=== PATIENT | male | born 1980 | race Caucasian/White ===

== ENCOUNTER 2021-09-05 09:51 | Emergency (ER) | payer BC ==
--- NOTE | 2021-09-05 10:00 | EDM.PDOC ---
ED HPI GENERAL MEDICAL PROBLEM - General Chief Complaint: Laceration Stated Complaint: FINGER LACERATION Time Seen by Provider: 09/05/21 09:51 Source of Information: Reports: Patient, Family History Limitations: Reports: No Limitations - History of Present Illness INITIAL COMMENTS - FREE TEXT/NARRATIVE: Charanjit, 41-year-old male, presents with laceration to the dorsal aspect of the right third PIP joint. This is 1.5 cm in total length and gapes with flexion of the digit. Bleeding is controlled with direct pressure. 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 Denies pain other than to the laceration site. Tetanus status is beyond 10 years and will be updated today. Denies any other concerns or complaints. Onset: Today, Sudden Duration: Minutes: Location: Reports: Upper Extremity, Right Quality: Reports: Dull, Pressure Severity: Moderate Improves with: Reports: Immobilization Worsens with: Reports: Movement Context: Reports: Activity Right Finger-Middle Pain Score (Numeric/FACES): 4 - Related Data Allergies Allergy/AdvReac Type Severity Reaction Status Date / Time No Known Allergies Allergy Verified 09/05/21 10:00 Home Meds: Home Meds . [No Known Home Meds] 09/05/21 [History] Past Medical History - Past Health History Medical/Surgical History: Denies Medical/Surgical History Social & Family History - Family History Family Medical History: No Pertinent Family History Review of Systems - Review of Systems Review Of Systems: Comprehensive ROS is negative, except as noted in HPI. ED EXAM, GENERAL - Physical Exam Exam: See Below Free Text/Narrative:: Alert, oriented, no acute distress. Left hand dominant. No cyanosis nor pallor is noted. No respiratory distress able to speak in full sentences with no audible wheezes nor crackles noted. Radial pulses intact and regular. Focused examination to the right hand with a 1.5 cm laceration across the third PIP gapes when flexed. CMS is intact distally capillary refill less than 2 seconds. There is no other injury or complaint noted on this visit examination. ED TRAUMA EXTREMITY PROCEDURES - Laceration/Wound Repair Right Proximal Digit - 3rd (Middle) Lac/Wound Length In cm: 1.5 Appearance: Subcutaneous Distal NVT: Neuro & Vascular Intact Anesthetic Type: Local Local Anesthesia - Lidocaine (Xylocaine): 1% Plain Local Anesthetic Volume: Other (1.5ml) Skin Prep: Chlorhexidine (Hibiciens) Exploration/Debridement/Repair: In a Bloodless Field, Explored to Base Closed With: Sutures Suture Size: 4-0 # of Sutures: 5 Suture Type: Nylon Drain Placement: No Sterile Dressing Applied: Provider Tetanus Status Addressed: Yes Complications: No Course - Vital Signs Last Recorded V/S: Last Vital Signs Temp 96.2 F L 09/05/21 09:56 Pulse 56 L 09/05/21 09:56 Resp 16 09/05/21 09:56 BP 132/90 09/05/21 09:56 Pulse Ox - Orders/Labs/Meds Meds: Medications Discontinued Medications Generic Name Dose Route Start Last Admin Trade Name Freq PRN Reason Stop Dose Admin Diphtheria/Tetanus/Acell Pertussis 0.5 ml 09/05/21 09:55 09/05/21 10:14 Diphtheria,Pertussis(Acell),Tetanus Vaccine 0.5 Ml Syringe IM 09/05/21 09:56 0.5 ml .ONCE ONE Administration Lidocaine 5 ml 09/05/21 09:56 09/05/21 10:16 Lidocaine 2% 5 Ml Sdv INJECT 09/05/21 09:57 1.5 ml ONETIME ONE Administration Neomycin/Polymyxin/Bacitracin 1 each 09/05/21 09:56 09/05/21 10:15 Bacitracin/Neomycin/Polymyxin B Oint 0.9 Gm U/D Packet TOP 09/05/21 09:57 1 each ONETIME ONE Administration Departure - Departure Time of Disposition: 10:34 Disposition: Home, Self-Care 01 Condition: Good Clinical Impression: Immunization due Laceration of finger of right hand Qualifiers: Encounter type: initial encounter Finger: middle finger Damage to nail status: without damage Foreign body presence: without foreign body Qualified Code(s): S61.212A - Laceration without foreign body of right middle finger without damage to nail, initial encounter - Discharge Information *PRESCRIPTION DRUG MONITORING PROGRAM REVIEWED*: Not Applicable *COPY OF PRESCRIPTION DRUG MONITORING REPORT IN PATIENT ALEXANDER: Not Applicable Instructions: Laceration Care, Adult, [id number] Referrals: Maureen Nicole MD [Primary Care Provider] - Forms: ED Department Discharge Additional Instructions: Sutures will need to be kept in for 10 days as this is over a knuckle where any motion will cause strain against the wound. Change dressing at least daily and if soiled. Keep this clean and dry as possible. Keep splint in place for at least 24 hours to reduce motion of the joint and may be used as needed thereafter. After 24 hours leave open to air at night as long as you are in a area where he will not bump the finger. May return to the clinic here in the hospital for suture removal as it is part of the emergency department visit for placement to have them removed. Avoid soaking swimming, using a waterproof barrier or rubber glove if needing to be in a wet environment. Sepsis Event Note (ED) - Focused Exam Vital Signs: Vital Signs Temp Pulse Resp BP 09/05/21 09:56 96.2 F L 56 L 16 132/90 - Problem List & Annotations (1) Laceration of finger of right hand SNOMED Code(s): 946859390, [id number] Code(s): S61.219A - LACERATION W/O FB OF UNSP FINGER W/O DAMAGE TO NAIL, INIT Status: Acute Priority: High Qualifiers: Encounter type: initial encounter Finger: middle finger Damage to nail status: without damage Foreign body presence: without foreign body Qualified Code(s): S61.212A - Laceration without foreign body of right middle finger without damage to nail, initial encounter (2) Immunization due SNOMED Code(s): 167665574 Code(s): Z23 - ENCOUNTER FOR IMMUNIZATION Status: Acute Priority: High - Problem List Review Problem List Initiated/Reviewed/Updated: Yes - Assessment/Plan Plan: Sutures will need to be kept in for 10 days as this is over a knuckle where any motion will cause strain against the wound. Change dressing at least daily and if soiled. Keep this clean and dry as possible. Keep splint in place for at least 24 hours to reduce motion of the joint and may be used as needed thereafter. After 24 hours leave open to air at night as long as you are in a area where he will not bump the finger. May return to the clinic here in the hospital for suture removal as it is part of the emergency department visit for placement to have them removed. Avoid soaking swimming, using a waterproof barrier or rubber glove if needing to be in a wet environment.
[2021-09-05] MEDS: Diphtheria,Pertussis(Acell),Tetanus Vaccine 0.5 ML Syringe IM ONE (10:14)
[2021-09-05] MEDS: Bacitracin/Neomycin/Polymyxin B Oint 0.9 GM U/D Packet TOP ONE (10:15)
[2021-09-05] MEDS: Lidocaine 2% 5 ML SDV INJECT ONE (10:16)
== END 2021-09-05 10:40 | disposition home or self-care (01) ==
LOC: KA.ED 09:51
DX: S61.212A Laceration without foreign body of right middle finger without damage to nail, initial encounter (principal); Z23 Encounter for immunization; W22.8XXA Striking against or struck by other objects, initial encounter; Y92.89 Other specified places as the place of occurrence of the external cause; Y99.0 Civilian activity done for income or pay
CPT/HCPCS: 12001; 90471; 90715; 99282-25; 99283